=== PATIENT | female | born 1970 | race African-American/Black ===

== ENCOUNTER 2018-02-17 19:22 | Emergency (ER) | payer MEDICAID ==
[~2018-02-17] VITALS: Ht 162.6 cm; Wt 58.5 kg
[2018-02-17 19:31] VITALS: BP 111/78
== END 2018-02-17 20:09 | disposition home or self-care (01) ==
LOC: ER 19:27
DX: F22 Delusional disorders (principal); F41.9 Anxiety disorder, unspecified
CPT/HCPCS: 99284; A4606; Z7610